=== PATIENT | male | born 1995 | race Caucasian/White ===

== ENCOUNTER 2017-10-30 10:42 | Emergency (ER) | payer SELFPAY ==
[~2017-10-30] VITALS: Ht 167.6 cm; Wt 57.0 kg
[~2017-10-30 10:42] MED LIST: NAPR-729 PO; ULTR50TA PO
[2017-10-30 10:43] VITALS: BP 131/69; PULSE 77; RESP 16; TEMP 97.9; O2SAT 100
== END 2017-10-30 12:09 | disposition left against medical advice (07) ==
LOC: NETRI 10:42
DX: M25.579 Pain in unspecified ankle and joints of unspecified foot (principal)
CPT/HCPCS: 99281

== ENCOUNTER 2017-10-30 12:13 | Emergency (ER) | payer OTHER, BC ==
[~2017-10-30] VITALS: Ht 167.6 cm; Wt 59.6 kg
[2017-10-30 12:17] VITALS: BP 121/75; PULSE 81; RESP 18; TEMP 98.4; O2SAT 97
[2017-10-30] MEDS ORDERED: ACETAMINOPHEN/HYDROcodone 325 MG/5 MG TAB PO ONE (13:00)
[2017-10-30] MEDS ORDERED: LIDOCAINE 1%/EPINEPHrine 1:100,000 SOLN 50 ML VIAL INFIL ONE (13:00)
[2017-10-30] MEDS ORDERED: IBUPROFEN 800 MG TAB PO ONE (13:00)
--- NOTE | 2017-10-30 13:01 | PD ---
HPI Chief Complaint: Laceration/Skin Injury Time Seen by Provider: 12:52 Travel History International Travel<30 days: No Contact w/Intl Traveler<30days: No Traveled to known affect area: No History of Present Illness HPI Patient comes to the emergency department complaining of a laceration to the medial aspect of his left ankle. 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 Patient reports he had to cut off his shoe and sock then applying a dressing prior to come to the emergency department. Patient reports a burning sensation around site of the laceration that radiates proximally and distally. Pain is worse with palpation. Patient reports he has not tried to put full weight on the ankle since the injury. Patient reports feeling numbing sensation in his toes. Reports his tetanus shot is up-to-date. PFSH Past Medical History Diabetes: No Diminished Hearing: No Immunizations Current: Yes Pancreatitis: No Tetanus Vaccination: < 5 Years Influenza Vaccination: Yes Past Surgical History Abdominal Surgery: Yes (DOUBLE HERNIA WHEN ONE MONTH OLD) Other Surgery: Yes (INGUINAL HERNIA REPAIR) Social History Alcohol Use: Yes (Occasional.) Tobacco Use: Yes (1 ppd) Substance Use: No Allergies-Medications (Allergen,Severity, Reaction): Coded Allergies: No Known Allergies (Verified Adverse Reaction, Unknown, 10/30/17) Reported Meds & Prescriptions Reported Meds & Active Scripts Active Naprosyn (Naproxen) 375 Mg Tab 375 Mg PO Q8H PRN Ultram (Tramadol HCl) 50 Mg Tab 50 Mg PO Q4H PRN Review of Systems Except as stated in HPI: all other systems reviewed are Neg Physical Exam Narrative GENERAL: Well-developed, well nourished, in no acute distress, and non-ill appearing. SKIN: Laceration noted over the medial aspect of left ankle. Is minimally gaping. No foreign body noted. No crepitus. HEAD: Atraumatic. Normocephalic. EYES: Pupils equal and round. EOMI. No scleral icterus. No injection or drainage. ENT: No nasal bleeding or discharge. Mucous membranes pink and moist. NECK: Trachea midline. Supple. No nuclear rigidity. CARDIOVASCULAR: Dorsal pulses 2+, intact, and equal bilaterally. Capillary refill less than 2 seconds. RESPIRATORY: No accessory muscle use. No respiratory distress. MUSCULOSKELETAL: No obvious deformities. No clubbing. No cyanosis. No edema. Full range of motion. Ankle: Neagative anterior draw and Baker test. Negative Maria Isabel's sign. No laxity noted with passive inversion and eversion of BL ankles. Negative squeeze test. Pulses equal BL distal to injury. Capillary refill less than 2 seconds distal to injury and equal BL. Sensation equal BL 1st web space. FROM of toes distal to injury and equal BL. NV intact distal to injury and equal BL. Dorsal pulses equal BL. NEUROLOGICAL: Awake and alert. No obvious cranial nerve deficits. Motor grossly within normal limits. Normal speech. PSYCHIATRIC: Appropriate mood and affect; insight and judgment normal. Data Data Last Documented VS Vital Signs Date Time Temp Pulse Resp B/P (MAP) Pulse Ox O2 Delivery O2 Flow Rate FiO2 10/30/17 12:17 98.4 81 18 121/75 (90) 97 Orders Orders Lidocai-Epi 1%-1:100,000 Inj (Xylocaine- (10/30/17 13:00) Acetamin-Hydrocod 325-5 Mg ([place] 5-325 (10/30/17 13:00) Ankle, Complete (Qmm4wbp) (10/30/17 ) Ibuprofen (Motrin) (10/30/17 13:00) Ed Discharge Order (10/30/17 14:15) [facility] Medical Decision Making Medical Screen Exam Complete: Yes Emergency Medical Condition: Yes Interpretation(s) Last Impressions Ankle X-Ray 10/30/17 0000 Signed Impressions: Service Date/Time: Monday, October 30, 2017 13:24 - CONCLUSION: Medial soft tissue swelling. No fracture seen. Tutu Hanson MD Differential Diagnosis Laceration, abrasion, open fracture, foreign body Narrative Course The patient suffered laceration to the extremity. There was no evidence to suggest foreign bodies. Visual, tactile and radiographic exams were unremarkable without evidence of foreign body at this time. There was no evidence of neurovascular injury. The patient had a normal distal vascular exam , and had full normal motor and sensory exams. There was also no evidence or tendon injury, with normal distal full range of motions, flexion, extension, abduction, adduction and opponens. There was no evidence of local joint space involvement at this time. The patient was irrigated with copious sterile normal saline and primary repair was performed. Please see procedure note. The patient was given signs and symptom warnings for infection, such as increasing pain, redness, swelling, associated heat, pus or fever. The patient was warned of possible unseen foreign body and instructed to return immediately if signs or symptoms develop. The patient was given instructions for timely follow up and for removal. The patient agreed with plan of care. Patient in no obvious distress upon re-evaluation. All pertinent Radiology result(s) discussed with patient. Any questions/concerns in reference to patient diagnosis/condition discussed and clarified prior to patient's discharge. Reinforced sheer importance of close follow up with patient's primary physician or primary care clinic. Instructed patient to return to ED immediately, if symptoms return/worsen. Patient showed understanding of above instructions. Further instructions and recommendations were detailed in discharge paperwork. Patient ambulated without difficulty out of ED at discharge. Procedures Procedure Narrative LACERATION REPAIR LOCATION: Medial aspect left ankle LENGTH: Approximately 3 cm in total length NUMBER OF STITCHES/BHARGAVI: One simple running REPAIR: Verbal consent was obtained. The area of the laceration was cleaned and prepped. The laceration was infiltrated with lidocaine with epi. The wound was copiously irrigated and explored without evidence of foreign body, bony involvement, ligament injury, tendon injury, or neurovascular injury. The wound was closed using 4-0 Ethilon. This was a single layer repair. A sterile dressing was applied by nurse. The patient was advised to keep the affected area as clean and dry as possible using soap and water. There were no complications. Patient tolerated the procedure well. Diagnosis Primary Impression: Laceration of ankle without complication Qualified Codes: S91.012A - Laceration without foreign body, left ankle, initial encounter Referrals: [facility] Patient Instructions: Care For Your Stitches (DC), General Instructions, Laceration (ED) Departure Forms: Work Release Enter return to work date: Nov 01, 2017 Additional Instructions: Follow-up with your primary care physician or return here in 10-14 days for suture removal. Keep wound dry and clean as possible using soap and water. Use Neosporin to promote healing. Do not soak or submerge wound. Use over-the- counter Tylenol and/or ibuprofen as needed for pain. Follow instructions on the packaging. Return to the emergency department if symptoms get worse. Disposition: 01 DISCHARGE HOME Condition: Stable Amaury Maynard Oct 30, 2017 13:01
--- NOTE | 2017-10-30 14:06 | RADRPT ---
EXAM DATE/TIME: 10/30/2017 13:24 [place] COMPARISON: No previous studies available for comparison. INDICATIONS : Laceration to medial aspect of left ankle due to cement razor grinder. MEDICAL HISTORY : Smoker. SURGICAL HISTORY : Inguinal hernia repair. ENCOUNTER: Initial ACUITY: 1 day PAIN SCORE: 8/10 LOCATION: Left medial ankle FINDINGS: There is moderate medial soft tissue swelling and without radiopaque foreign body. The osseous struc tures about the ankle are intact without evidence of fracture or dislocation. Ankle mortise is intac t. CONCLUSION: Medial soft tissue swelling. No fracture seen. Tutu Hanson MD on October 30, 2017 at 14:04 Board Certified Radiologist. This report was verified electronically.
== END 2017-10-30 14:44 | disposition home or self-care (01) ==
LOC: PHEFT 12:13
DX: S91.012A Laceration without foreign body, left ankle, initial encounter (principal); R20.8 Other disturbances of skin sensation; R20.0 Anesthesia of skin; F17.200 Nicotine dependence, unspecified, uncomplicated; W20.8XXA Other cause of strike by thrown, projected or falling object, initial encounter; Y99.0 Civilian activity done for income or pay
CPT/HCPCS: 12002; 73610

== ENCOUNTER 2017-11-02 12:22 | Emergency (ER) | payer OTHER, BC ==
[~2017-11-02] VITALS: Ht 167.6 cm; Wt 60.2 kg
[2017-11-02 12:24] VITALS: BP 139/63; PULSE 70; RESP 16; TEMP 97.6; O2SAT 99
[2017-11-02] MEDS ORDERED: BACT800T5 PO (13:32)
[2017-11-02] MEDS ORDERED: IBUP1TAB7 PO (13:32)
--- NOTE | 2017-11-02 13:32 | PD ---
HPI Chief Complaint: Pain: Acute or Chronic Time Seen by Provider: 12:48 Travel History International Travel<30 days: No Contact w/Intl Traveler<30days: No Traveled to known affect area: No History of Present Illness HPI This is a 22-year-old male here for wound recheck of a left ankle laceration sustained several days ago. He is requesting 800 mg ibuprofen and a work note. He reports continued pain at the site. He does not endorse worsening pain. Denies fever or chills. He has not removed the dressing since the visit. Symptom severity is mild. No aggravating or alleviating factors. PFSH Past Medical History Medical History: Denies Significant Hx Hx Anticoagulant Therapy: No Diabetes: No Diminished Hearing: No Immunizations Current: Yes Pancreatitis: No ?: Not Past Surgical History Abdominal Surgery: Yes (DOUBLE HERNIA WHEN ONE MONTH OLD) Other Surgery: Yes (INGUINAL HERNIA REPAIR) Social History Alcohol Use: Yes (Occasional.) Tobacco Use: Yes (1 ppd) Substance Use: No Allergies-Medications (Allergen,Severity, Reaction): Coded Allergies: No Known Allergies (Verified Adverse Reaction, Unknown, 11/02/17) Reported Meds & Prescriptions Reported Meds & Active Scripts Active Naprosyn (Naproxen) 375 Mg Tab 375 Mg PO Q8H PRN Ultram (Tramadol HCl) 50 Mg Tab 50 Mg PO Q4H PRN Review of Systems Except as stated in HPI: all other systems reviewed are Neg General / Constitutional: No: Fever Physical Exam Narrative GENERAL: Alert and nontoxic-appearing 22-year-old male. Disheveled appearance. SKIN: Warm and dry. Laceration to left medial ankle with small amount of yellowish discharge from the wound. The wound is tender to palpation. No fluctuance. Mild erythema wound edges. No surrounding cellulitis. HEAD: Normocephalic. EYES: No injection or drainage. NECK: Supple MUSCULOSKELETAL: No cyanosis, or edema. The skin noted above Data Data Last Documented VS Vital Signs Date Time Temp Pulse Resp B/P (MAP) Pulse Ox O2 Delivery O2 Flow Rate FiO2 11/02/17 12:24 97.6 70 16 139/63 (88) 99 MDM Medical Decision Making Medical Screen Exam Complete: Yes Emergency Medical Condition: Yes Differential Diagnosis Wound infection, abscess, cellulitis Narrative Course 22-year-old male here for wound recheck. The patient has disheveled appearance. Very poor hygiene. The original dressing was removed. He has some purulent drainage from the site. Mild erythema wound edges. Area is tender. No fluctuance. No surrounding cellulitis. Patient be treated for mild wound infection. He was encouraged to cleanse the area daily and change the dressing. Diagnosis Primary Impression: Wound infection Referrals: Primary Care Physician Additional Instructions: Cleansed the area daily with soap and water and put on a new clean dry dressing Antibiotics as directed. Ibuprofen 800 mg as needed for pain. Return if he developed new or worsening symptoms. Scripts Sulfamethoxazole-Trimethoprim (Bactrim DS) 800-160 Mg Tab 1 TAB PO BID for Infection, #14 TAB 0 Refills Prov: Lindsey Ambrocio 11/02/17 Ibuprofen (Ibuprofen) 800 Mg Tab 800 MG PO Q6HR Y for PAIN, #40 TAB 0 Refills Prov: Lindsey Ambrocio 11/02/17 Disposition: 01 DISCHARGE HOME Condition: Stable Lindsey Ambroico Nov 02, 2017 13:32
== END 2017-11-02 14:04 | disposition home or self-care (01) ==
LOC: PHEFT 12:22
DX: S91.012D Laceration without foreign body, left ankle, subsequent encounter (principal); L08.9 Local infection of the skin and subcutaneous tissue, unspecified; F17.210 Nicotine dependence, cigarettes, uncomplicated; X58.XXXD Exposure to other specified factors, subsequent encounter
CPT/HCPCS: 99283

== ENCOUNTER 2017-12-15 10:11 | Emergency (ER) | payer BC, OTHER ==
[~2017-12-15] VITALS: Ht 165.1 cm; Wt 60.0 kg
[~2017-12-15 10:11] MED LIST changes: +BACT800T5 PO; +IBUP1TAB7 PO
[2017-12-15 10:16] VITALS: BP 129/87; PULSE 71; RESP 16; TEMP 98.1; O2SAT 98
[2017-12-15] MEDS ORDERED: CIPR0.3S2 LEFT EYE (11:07)
--- NOTE | 2017-12-15 11:08 | PD ---
HPI Chief Complaint: Eye Problems/Injury Time Seen by Provider: 10:55 Travel History International Travel<30 days: No Contact w/Intl Traveler<30days: No Traveled to known affect area: No History of Present Illness HPI 22-year-old male presents to the emergency department for evaluation of irritation to the left eye, possible foreign body that started yesterday. 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 He rubbed it and wash it out and was able to get out, but still has irritation and possible foreign body. Current pain is 5/10 to the left eye, aching, without radiation. He does not wear contacts or glasses. No other injury to the eye. Moderate severity. Patient states his tetanus immunization is up-to-date [facility] Past Medical History Medical History: Denies Significant Hx Hx Anticoagulant Therapy: No Diabetes: No Diminished Hearing: No Immunizations Current: Yes Pancreatitis: No Influenza Vaccination: Yes ?: Not Past Surgical History Abdominal Surgery: Yes (BARNEY ING HERNIA REPAIR) Other Surgery: Yes (INGUINAL HERNIA REPAIR) Social History Alcohol Use: Yes (Occasional.) Tobacco Use: Yes (1.5 ppd) Substance Use: No Allergies-Medications (Allergen,Severity, Reaction): Coded Allergies: No Known Allergies (Verified Adverse Reaction, Unknown, 12/15/17) Reported Meds & Prescriptions Reported Meds & Active Scripts Active Ibuprofen 800 Mg Tab 800 Mg PO Q6HR PRN Review of Systems Except as stated in HPI: all other systems reviewed are Neg Physical Exam Narrative GENERAL: Well-nourished, well-developed male patient, ambulatory. Afebrile SKIN: Focused skin assessment warm/dry. HEAD: Normocephalic. Atraumatic EYES: No scleral icterus. Left conjunctiva is mildly erythematous. No foreign body seen on upper lid eversion. Patient does have a small corneal abrasion to the 8 o'clock position to the left cornea. No photophobia NECK: Supple, trachea midline. No JVD or lymphadenopathy. RESPIRATORY: No accessory muscle use. MUSCULOSKELETAL: No cyanosis, or edema. Data Data Last Documented VS Vital Signs Date Time Temp Pulse Resp B/P (MAP) Pulse Ox O2 Delivery O2 Flow Rate FiO2 12/15/17 10:16 98.1 71 16 129/87 (101) 98 MDM Medical Decision Making Medical Screen Exam Complete: Yes Emergency Medical Condition: Yes Medical Record Reviewed: Yes Differential Diagnosis Foreign body versus corneal abrasion versus corneal ulcer versus conjunctivitis versus iritis Narrative Course 22-year-old male presents to the emergency department for evaluation of possible foreign body to the left eye. Physical exam reveals corneal abrasion. No evidence of foreign body. His tetanus immunization is up-to-date according to the patient. Patient will be discharged with a prescription for ciprofloxacin ophthalmic drops. He is instructed from building principal on Sunday if symptoms do not improve or worsen. He verbalizes agreement. The patient was discharged in stable condition with instructions, including return instructions and follow up instructions. Diagnosis Primary Impression: Injury of conjunctiva and corneal abrasion of left eye w/o FB Qualified Codes: S05.02XA - Injury of conjunctiva and corneal abrasion without foreign body, left eye, initial encounter Referrals: Aurelia Posadas MD call for appointment Patient Instructions: Corneal Abrasion (ED), General Instructions Additional Instructions: Use antibiotic eyedrops as directed. Warm, moist compresses as needed. [id number] ibuprofen every 6-8 hours as needed for pain. Follow up with building principal on Sunday if symptoms continue or do not improve. Return to the emergency department for any acute worsening of symptoms. Med/Other Pt SpecificInfo: Prescription(s) given Scripts Ciprofloxacin Opth Drops (Ciprofloxacin Opth Drops) 0.3% Soln 2 DROP LEFT EYE Q4H for Infection, #1 BOTTLE 0 Refills while awake x 5 days. Prov: Whit Rivas 12/15/17 Disposition: 01 DISCHARGE HOME Condition: Stable Wiht Rivas Dec 15, 2017 11:08
== END 2017-12-15 11:18 | disposition home or self-care (01) ==
LOC: PHEFT 10:11
DX: S05.02XA Injury of conjunctiva and corneal abrasion without foreign body, left eye, initial encounter (principal); W45.8XXA Other foreign body or object entering through skin, initial encounter; Y93.H3 Activity, building and construction; F17.210 Nicotine dependence, cigarettes, uncomplicated
CPT/HCPCS: 99283